=== PATIENT | male | born 1990 | race African-American/Black ===

== ENCOUNTER 2025-07-30 17:15 | Inpatient (IN) | payer SELFPAY ==
[~2025-07-30] VITALS: Ht 177.8 cm; Wt 113.4 kg
[2025-07-30] MEDS ORDERED: LEVETIRACETAM 1000MG PREMIX 100 ML IV ONE (17:45)
[2025-07-30] MEDS: DILTIAZEM HCL 5MG/ML 5ML VIAL IV ONE ×3 (17:48→21:58)
[2025-07-30] MEDS: SODIUM CHLORIDE 0.9% 1,000 ML IV ONE ×3 (17:48→19:54)
[2025-07-30 18:06] LABS: BASOPHILS % 0.5 % (0.0-2.0); EOSINOPHILS % 0.1 % (0.0-5.0); HEMATOCRIT. 38.9 % (42.0-52.0); HEMOGLOBIN. 12.6 g/dL (14.0-18.0); LYMPHOCYTES % 15.8 % (20.0-50.0); MEAN PLATELET VOLUME 9.3 fl (7.4-10.4); MONOCYTES % 11.2 % (2.0-8.0); NEUTROPHILS % 72.4 % (40.0-76.0); PLATELET 243 x1000/uL (130-400); RED BLOOD CELL COUNT 3.55 mill/uL (4.7-6.1); RED CELL DISTRIBUTION WIDTH 19.0 % (11.6-14.6)
[2025-07-30 18:16] LABS: CREATININE 1.1 mg/dL (0.6-1.3); UREA NITROGEN BLOOD 7 mg/dL (9-23)
[2025-07-30 18:17] LABS: ASPARTATE AMINOTRANSFERASE 306 IU/L (<34)
[2025-07-30 18:18] LABS: BILIRUBIN DIRECT 0.7 mg/dL (<=3.0); BILIRUBIN TOTAL 1.9 mg/dL (0.1-1.0); PROTEIN TOTAL 8.6 g/dL (6.0-8.3)
[2025-07-30 19:08] LABS: TROPONIN I HIGH SENSITIVITY 12 ng/L (3.0-53)
[2025-07-30 19:13] LABS: T4 FREE 1.16 ng/dL (0.89-1.76)
[2025-07-30] MEDS: KETOROLAC 15MG/ML VIAL IV ONE (19:48)
[2025-07-30] MEDS ORDERED: MAGNESIUM/ALUMINUM HYDROXIDE/SIMETHICONE 30ML UDC PO PRN (22:00)
[2025-07-30] MEDS ORDERED: DILTIAZEM HCL 125 MG in DEXT 5% WATER 100 ML IV ONE (22:00)
[2025-07-30] MEDS ORDERED: ONDANSETRON HCL 4MG/2ML INJ IV PRN (22:00)
[2025-07-30] MEDS: DILTIAZEM HCL 5MG/ML 5ML VIAL IV SCH (22:04)
[2025-07-30] MEDS: LORAZEPAM 2MG/ML UD SYRINGE IV SCH (22:06)
[2025-07-30] MEDS: DILTIAZEM HCL 125 MG in DEXT 5% WATER 100 ML IV PRN (22:16)
[2025-07-30] MEDS: DILTIAZEM HCL 125 MG in DEXT 5% WATER 100 ML IV ONE (22:22)
[2025-07-30] MEDS: MIDAZOLAM HCL 2 MG/2 ML VIAL IV ONE (22:52)
[2025-07-30] MEDS: MORPHINE SULFATE 4 MG/ML INJ (FOR IV/IM USE) IV ONE (22:53)
[2025-07-30] MEDS ORDERED: IOHEXOL-350 100 ML BOTTLE ONE (23:11)
[2025-07-30 23:20] LABS: TROPONIN I HIGH SENSITIVITY 29 ng/L (3.0-53)
[2025-07-31] VITALS (97 sets, daily range): BP systolic 120–165; BP diastolic 79–132; PULSE 85–140; RESP 13–28; TEMP 36.5–36.9; O2SAT 94–100
[2025-07-31] MEDS: PANTOPRAZOLE SODIUM 40 MG/VIAL IV SCH (00:57)
[2025-07-31] MEDS: DILTIAZEM HCL 30MG TABLET PO SCH (00:57)
[2025-07-31] MEDS: ENOXAPARIN 120MG/0.8ML SYR SUBCUT NR (00:57)
[2025-07-31] MEDS: LEVETIRACETAM 1000MG PREMIX 100 ML IV SCH (00:58)
[2025-07-31] MEDS: SODIUM CHLORIDE 0.9% 1,000 ML IV SCH (00:58)
[2025-07-31] MEDS: CLONIDINE 0.1MG TABLET PO PRN (02:11)
[2025-07-31] MEDS: HYDROCODONE/ACETAMINOPHEN 5/325MG TABLET PO PRN (04:40)
[2025-07-31] MEDS: FOLIC ACID 1 MG, THIAMINE HCL 100 MG, MVI, ADULT NO.1 10 ML in SODIUM CHLORIDE 0.9% 1,0... IV ONE (05:11)
[2025-07-31 05:28] LABS: BASOPHILS % 0.4 % (0.0-2.0); EOSINOPHILS % 0.0 % (0.0-5.0); HEMATOCRIT. 31.4 % (42.0-52.0); HEMOGLOBIN. 10.7 g/dL (14.0-18.0); LYMPHOCYTES % 9.0 % (20.0-50.0); MEAN PLATELET VOLUME 9.6 fl (7.4-10.4); MONOCYTES % 8.5 % (2.0-8.0); NEUTROPHILS % 82.1 % (40.0-76.0); PLATELET 196 x1000/uL (130-400); RED BLOOD CELL COUNT 3.00 mill/uL (4.7-6.1); RED CELL DISTRIBUTION WIDTH 18.1 % (11.6-14.6)
[2025-07-31 05:41] LABS: CREATININE 0.7 mg/dL (0.6-1.3); UREA NITROGEN BLOOD 5 mg/dL (9-23)
[2025-07-31 05:45] LABS: TROPONIN I HIGH SENSITIVITY 46 ng/L (3.0-53)
[2025-07-31 05:54] LABS: INR 1.0
[2025-07-31] MEDS: POTASSIUM CHLORIDE 20MEQ/PACKET PO NR (06:18)
[2025-07-31] MEDS: BUSPIRONE HCL 5MG TABLET PO SCH (06:18)
[2025-07-31] MEDS: ENOXAPARIN 120MG/0.8ML SYR SUBCUT SCH (08:34)
[2025-07-31] MEDS ORDERED: LEVETIRACETAM 500MG PREMIX 100 ML IV SCH (09:00)
[2025-07-31] MEDS: DILTIAZEM HCL 125 MG in DEXT 5% WATER 100 ML IV PRN (10:41)
[2025-07-31] MEDS: METOPROLOL TARTRATE 50MG TABLET PO SCH (12:46)
[2025-07-31] MEDS: DIGOXIN 500MCG/2ML AMP IV NR (12:47)
[2025-07-31 15:11] LABS: CLARITY URINE CLEAR (CLEAR); COLOR URINE YELLOW (YELLOW); GLUCOSE URINE NEGATIVE (NEGATIVE); KETONES URINE 2+ (NEGATIVE); LEUKOCYTE ESTERASE URINE NEGATIVE (NEGATIVE); NITRITE URINE NEGATIVE (NEGATIVE); OCCULT BLOOD URINE NEGATIVE (NEGATIVE); PH URINE 6.0 (4.5-8.0); PROTEIN URINE TRACE (NEGATIVE); SPECIFIC GRAVITY URINE 1.015 (1.005-1.030); UROBILINOGEN URINE 1.0 E.U./dL (0.2-1.0)
[2025-07-31 15:21] LABS: BACTERIA URINE NONE SEEN; RBC URINE 0-2 /hpf (0-2); SQUAMOUS EPITHELIAL CELL URINE RARE /lpf (RARE/1+); WBC URINE 0-2 /hpf (0-2); YEAST URINE NONE SEEN
[2025-07-31 15:23] LABS: *AMPHETAMINES SCREEN URINE NEGATIVE (NEGATIVE); *BARBITURATES SCREEN URINE NEGATIVE (NEGATIVE); *BENZODIAZEPINES SCREEN URINE PRESUMPTIVE POSITIVE (NEGATIVE); *COCAINE SCREEN URINE NEGATIVE (NEGATIVE); CANNABINOID URINE SCREEN PRESUMPTIVE POSITIVE (NEGATIVE); ECSTASY MDMA SCREEN URINE NEGATIVE (NEGATIVE); METHADONE URINE SCREEN NEGATIVE (NEGATIVE); OPIATES URINE SCREEN PRESUMPTIVE POSITIVE (NEGATIVE); PHENCYCLIDINE URINE SCREEN NEGATIVE (NEGATIVE)
[2025-07-31] MEDS: HALOPERIDOL LACTATE 5MG/ML VIAL IM SCH (22:11)
[2025-07-31] MEDS: DIGOXIN 500MCG/2ML AMP IV SCH (22:20)
[2025-07-31] MEDS: METOPROLOL TARTRATE 25MG TABLET PO SCH (22:20)
[2025-07-31] MEDS: LORAZEPAM 2MG/ML UD SYRINGE IV PRN (22:48)
[2025-07-31] MEDS ORDERED: DEXMEDETOMIDINE 100 ML IV PRN (23:30)
[2025-07-31] MEDS: DEXMEDETOMIDINE 250 ML IV PRN (23:37)
[2025-07-31] MEDS: ZOLPIDEM TARTRATE 5MG TABLET PO PRN (23:43)
[2025-08-01] VITALS (92 sets, daily range): BP systolic 87–166; BP diastolic 49–117; PULSE 87–109; RESP 16–28; TEMP 36.7–38.2; O2SAT 89–100
[2025-08-01 05:29] LABS: BASOPHILS % 0.4 % (0.0-2.0); EOSINOPHILS % 0.1 % (0.0-5.0); HEMATOCRIT. 28.8 % (42.0-52.0); HEMOGLOBIN. 9.6 g/dL (14.0-18.0); LYMPHOCYTES % 7.7 % (20.0-50.0); MEAN PLATELET VOLUME 10.1 fl (7.4-10.4); MONOCYTES % 10.2 % (2.0-8.0); NEUTROPHILS % 81.6 % (40.0-76.0); PLATELET 156 x1000/uL (130-400); RED BLOOD CELL COUNT 2.67 mill/uL (4.7-6.1); RED CELL DISTRIBUTION WIDTH 18.3 % (11.6-14.6)
[2025-08-01 05:45] LABS: CREATININE 0.7 mg/dL (0.6-1.3)
[2025-08-01 05:46] LABS: UREA NITROGEN BLOOD < 5 mg/dL (9-23)
[2025-08-01] MEDS: CLONIDINE 0.1MG TABLET PO SCH (06:00)
[2025-08-01] MEDS: CHLORDIAZEPOXIDE 25MG CAPSULE PO SCH (06:21)
[2025-08-01] MEDS: METOPROLOL TARTRATE 25MG TABLET PO SCH (09:00)
[2025-08-01 09:27] LABS: VITAMIN B12 SERUM 628 pg/mL (211-911)
[2025-08-01] MEDS: KCL 20MEQ/100ML PREMIX 100 ML IV SCH (10:10)
[2025-08-01] MEDS: MULTIVITAMINS,THER W-MINERALS TABLET PO SCH (13:00)
[2025-08-01] MEDS ORDERED: LORAZEPAM 1MG TABLET PO PRN ×3 (13:00)
[2025-08-01] MEDS ORDERED: LORAZEPAM 2MG/ML UD SYRINGE IV PRN ×5 (13:45)
[2025-08-01] MEDS: THIAMINE HCL 100 MG in SODIUM CHLORIDE 0.9% 49 ML IV SCH (13:46)
[2025-08-01] MEDS: FOLIC ACID 1 MG in SODIUM CHLORIDE 0.9% 500 ML IV SCH (13:52)
[2025-08-01] MEDS: KCL 10MEQ/50ML PREMIX 50 ML IV SCH (16:00)
[2025-08-02] VITALS (14 sets, daily range): BP systolic 98–161; BP diastolic 74–113; PULSE 99–115; RESP 13–30; TEMP 37.1–37.8; O2SAT 97–100
[2025-08-02] MEDS: ACETAMINOPHEN 325MG TABLET PO PRN (01:46)
[2025-08-02] MEDS: DILTIAZEM HCL 5MG/ML 5ML VIAL IV PRN (01:47)
[2025-08-02 05:54] LABS: BASOPHILS % 0.2 % (0.0-2.0); EOSINOPHILS % 0.1 % (0.0-5.0); HEMATOCRIT. 28.1 % (42.0-52.0); HEMOGLOBIN. 9.2 g/dL (14.0-18.0); LYMPHOCYTES % 8.8 % (20.0-50.0); MEAN PLATELET VOLUME 10.5 fl (7.4-10.4); MONOCYTES % 12.2 % (2.0-8.0); NEUTROPHILS % 78.7 % (40.0-76.0); PLATELET 166 x1000/uL (130-400); RED BLOOD CELL COUNT 2.57 mill/uL (4.7-6.1); RED CELL DISTRIBUTION WIDTH 17.9 % (11.6-14.6)
[2025-08-02 06:21] LABS: CREATININE 0.8 mg/dL (0.6-1.3)
[2025-08-02 06:22] LABS: UREA NITROGEN BLOOD < 5 mg/dL (9-23)
== END 2025-08-02 07:21 | disposition left against medical advice (07) | DRG 53 ==
LOC: ER 17:15 → EDBEDREQTM 20:49 → EDBEDREQ 20:49 → ENRESERV 21:44 → CVICU 21:53 → EDBEDREQSVC 22:08 → EDBEDREQTM 22:11 → ENRESERV 23:23
PROVIDERS: ADMIT Internal Medicine; ATTEND Internal Medicine
DX: G40.909 Epilepsy, unspecified, not intractable, without status epilepticus (principal); G92.8 Other toxic encephalopathy; R16.0 Hepatomegaly, not elsewhere classified; Z78.1 Physical restraint status; D64.9 Anemia, unspecified; S43.084A Other dislocation of right shoulder joint, initial encounter; E87.6 Hypokalemia; F10.139 Alcohol abuse with withdrawal, unspecified; I48.91 Unspecified atrial fibrillation; R73.9 Hyperglycemia, unspecified; I99.8 Other disorder of circulatory system; Z53.29 Procedure and treatment not carried out because of patient's decision for other reasons; I10 Essential (primary) hypertension; F11.10 Opioid abuse, uncomplicated; F19.10 Other psychoactive substance abuse, uncomplicated; F12.10 Cannabis abuse, uncomplicated; R74.01 Elevation of levels of liver transaminase levels; Z91.148 Patient's other noncompliance with medication regimen for other reason; X58.XXXA Exposure to other specified factors, initial encounter; Y93.89 Activity, other specified; Y92.89 Other specified places as the place of occurrence of the external cause; Y99.8 Other external cause status; Y90.0 Blood alcohol level of less than 20 mg/100 ml
CPT/HCPCS: 36415; 71045; 71275; 73030; 76770; 80048; 80076; 80305; 80320; 81003; 82140; 82607; 83735; 83880; 84439; 84443; 84484; 85025; 93005; 93306; 93970; 96361; 96375; 96376; 99285; A4606; J1160; J1630; J1650; J1885; J1953; J2060; J2250; J2270; J2470; J3411; J3480; J3490; J7030; J7040; J7060; Q9967; G0480